=== PATIENT | female | born 1990 | race African-American/Black ===

== ENCOUNTER 2018-05-30 10:00 | Emergency (ER) | payer SELFPAY ==
[~2018-05-30] VITALS: Ht 165.1 cm; Wt 65.8 kg
[2018-05-30] MEDS ORDERED: NKM (10:09)
[2018-05-30 10:28] VITALS: BP 118/74
[2018-05-30] MEDS ORDERED: BENADRYL25 MG ORAL (10:48)
[2018-05-30] MEDS ORDERED: PREDNISONE20 MG ORAL (10:48)
[2018-05-30 11:10] VITALS: BP 118/74
--- NOTE | 2018-05-30 14:41 | Emergency Room Report ---
History of Present Illness General Chief Complaint: Skin Rash/Abscess Source: Patient Present Illness HPI Patient presents with erythema behind the posterior right thigh area started several days ago The area has enlarged She feels area of increased itching Denies any fevers denies any chest pain or shortness of breath denies any abdominal pain Allergies: Coded Allergies: No Known Allergies (Unverified , 05/30/18) Patient History Past Medical History: see triage record Pertinent Family History: none Last Menstrual Period: 05/12/2018 Reviewed Nursing Documentation: PMH: Agreed; PSxH: Agreed Nursing Documentation-PMH Past Medical History: No Stated History Review of Systems All Other Systems: negative except mentioned in HPI Physical Exam Vital Signs Date Time Temp Pulse Resp B/P (MAP) Pulse Ox O2 Delivery O2 Flow Rate FiO2 05/30/18 10:06 98.1 82 14 118/74 97 Room Air 98.1 Sp02 EP Interpretation: reviewed, normal General Appearance: well appearing, no apparent distress Head: normocephalic, atraumatic Eyes: bilateral eye PERRL, bilateral eye EOMI ENT: hearing grossly normal, normal pharynx Neck: supple Respiratory: chest non-tender, lungs clear Cardiovascular #1: regular rate, rhythm Gastrointestinal: non tender Musculoskeletal: normal inspection Neurologic: alert, oriented x3, responsive Skin: other - Area of 3 x 3 cm circular, urticarial lesion posterior right upper thigh no signs of secondary fluctuance, Lymphatic: no adenopathy Medical Decision Making Diagnostic Impression: Primary Impression: insect bite ER Course Patient appears to be having a localized reaction to the affected area No obvious cellulitis patient will have initial conservative outpatient trial And return with any changes Last Vital Signs Date Time Temp Pulse Resp B/P (MAP) Pulse Ox O2 Delivery O2 Flow Rate FiO2 05/30/18 11:10 98.1 14 118/74 97 Room Air 98.1 05/30/18 10:06 82 Status: improved Disposition: HOME, SELF-CARE Condition: Stable Scripts Diphenhydramine Hcl* (BENADRYL*) 25 Mg Capsule 25 MG ORAL Q6H PRN for Itching, #20 CAP Prov: Chris Spencer DO 05/30/18 Prednisone* (PREDNISONE*) 20 Mg Tablet 20 MG ORAL BID, #6 TAB Prov: Chris Spencer DO 05/30/18 Referrals: NOT CHOSEN IPA/MD,REFERRING (PCP) Patient Instructions: Insect Bite, [id number] Additional Instructions: Patient is provided with the discharge instructions notified to follow up with primary doctor in the next 2-3 days otherwise return to the er with any worsening symptoms. Please note that this report is being documented using [employer] technology. This can lead to erroneous entry secondary to incorrect interpretation by the dictating instrument. Chris Spencer DO May 30, 2018 14:41
== END 2018-05-30 11:10 | disposition home or self-care (01) ==
LOC: EMR 10:35
DX: S70.361A Insect bite (nonvenomous), right thigh, initial encounter (principal); W57.XXXA Bitten or stung by nonvenomous insect and other nonvenomous arthropods, initial encounter; Y93.9 Activity, unspecified; Y92.9 Unspecified place or not applicable
CPT/HCPCS: 99283; J7512

== ENCOUNTER 2018-08-12 13:28 | Emergency (ER) | payer OTHER ==
[~2018-08-12] VITALS: Ht 165.1 cm; Wt 52.2 kg
[~2018-08-12 13:28] MED LIST: BENADRYL25 MG ORAL; NKM; PREDNISONE20 MG ORAL
[2018-08-12 13:42] VITALS: BP 116/79
[2018-08-12] MEDS ORDERED: CEPHALEXIN500 MG ORAL (13:58)
[2018-08-12] MEDS ORDERED: HYDROCORTISONE30 G2 TP (13:58)
[2018-08-12] MEDS ORDERED: BENADRYL25 MG ORAL (13:58)
[2018-08-12] MEDS ORDERED: BACITRACIN-P28.35 GM TP (13:58)
--- NOTE | 2018-08-12 13:59 | Emergency Room Report ---
History of Present Illness General Chief Complaint: Skin Rash/Abscess Source: Patient Present Illness HPI 27-year-old female patient presents ER complaining of possible bug bite on lower left lateral leg for the past 2 days. Patient reports has gotten bigger since yesterday. Reports pain, itchiness at site of injury. Reports did not see bug or spider. Denies fever, chest pain, shortness breath, vomiting, seizure. Denies other acute symptoms. Denies pain. Allergies: Coded Allergies: MORPHINE (Verified Allergy, Unknown, 08/12/18) Patient History Past Medical History: see triage record Last Menstrual Period: 07/31/18 Reviewed Nursing Documentation: PMH: Agreed; PSxH: Agreed Nursing Documentation-PMH Past Medical History: No Stated History Review of Systems All Other Systems: negative except mentioned in HPI Physical Exam Vital Signs Date Time Temp Pulse Resp B/P (MAP) Pulse Ox O2 Delivery O2 Flow Rate FiO2 08/12/18 13:42 98.1 70 18 116/79 100 Room Air Sp02 EP Interpretation: reviewed, normal General Appearance: well appearing, no apparent distress, alert, GCS 15, non- toxic Head: normocephalic, atraumatic Eyes: bilateral eye normal inspection, bilateral eye PERRL ENT: hearing grossly normal, normal pharynx, no angioedema, normal voice, uvula midline, moist mucus membranes Neck: full range of motion Respiratory: lungs clear, normal breath sounds, no rhonchi, no respiratory distress, no accessory muscle use, no wheezing, speaking full sentences Cardiovascular #1: regular rate, rhythm, no edema Cardiovascular #2: 2+ dorsalis pedis (R), 2+ dorsalis pedis (L) Musculoskeletal: back normal, digits/nails normal, gait/station normal, normal range of motion, non-tender Neurologic: alert, oriented x3, responsive, motor strength/tone normal, sensory intact Psychiatric: mood/affect normal Skin: other - macule with erythema and overlying urticaria, 3cm circular, no target sign, warmth to touch, tenderness to palpation, no red streaking, no fluctuance, no palpable mass, no crepitus Medical Decision Making PA Attestation Dr. Trevino is my supervising Physician whom patient management has been discussed with. Diagnostic Impression: Primary Impression: Bug bite ER Course Pt. presents to the ED c/o bug bite. Ddx considered but are not limited to atopic dermatitis, bug bite, urticaria, allergic reaction. Vital signs: are WNL, pt. is afebrile ER COURSE: Physical exam consistent with bug bite infection, will provide patient with antibiotics, oral and topical. no induration, no palpable masses, no abscess required I and D. Do not scratch, apply cool compresses to affected area. Take Claritin during the day and Benadryl at night for itching symptoms. Followup wt PCP and request referral to derm. ER precautions given. Follow-up with primary care provider in 2-3 days for wound check. TDAp provided. DISCHARGE: -Rx given for Benadryl for pruritis. SE may cause drowsiness. -Rx given for hydrocortisone cream. Do not apply to face or skin creases. -Rx given for Bacitracin -Rx given for Keflex At this time pt. is stable for d/c to home. Patient resting comfortably, in no acute distress, nontoxic appearing. Care plan and follow up instructions have been discussed with the patient prior to discharge. Patient provided with printed patient care instructions, and any necessary prescriptions. Patient instructed to follow-up with primary care provider in 3 - 5 days. Patient questions asked and answered. Patient reports understanding and agreement to treatment plan. ER precautions given. Patient instructed to return to ER immediately for any new or worsening of symptoms including but not limited to increasing SOB, persistent fever. - Please note that this Emergency Department Report was dictated using [employer] administrator technology software, occasionally this can lead to erroneous entry secondary to interpretation by the dictation equipment. Last Vital Signs Date Time Temp Pulse Resp B/P (MAP) Pulse Ox O2 Delivery O2 Flow Rate FiO2 08/12/18 13:42 98.1 70 18 116/79 100 Room Air Disposition: HOME, SELF-CARE Condition: Stable Scripts Hydrocortisone (Hydrocortisone Cream 2.5%) Y Cream.appl 1 APPLIC TP BID, #28 GM Prov: Rommel Ruffin 08/12/18 Cephalexin* (KEFLEX*) 500 Mg Capsule 500 MG ORAL EVERY 12 HOURS, #14 CAP 0 Refills Prov: Rommel Ruffin 08/12/18 Bacitracin/Polymyxin B Sulfate (BACITRACIN-POLYMYXIN OINTMENT) 28.35 Gm Oint...g. 1 APPLIC TP BID, #28 GM Prov: Rommel Ruffin 08/12/18 Diphenhydramine Hcl* (BENADRYL*) 25 Mg Capsule 25 MG ORAL QHS PRN for Itching, #30 CAP Prov: Rommel Ruffin 08/12/18 Patient Instructions: Cellulitis, [id number], Insect Bite Additional Instructions: Followup with primary care provider in 3 -5 days. Request referral to dermatology as needed. Do not scratch or itch. Apply cool compresses to affected area. Wash all clothes and bedding. Take medications as directed. Do not apply topical steroid medication to face or skin creases. SE Benadryl drowsiness, do not take prior to drinking, driving, operating heavy machinery. Take Claritin during the day and Benadryl at night for itching symptoms. Patient questions asked and answered. ER precautions given, patient instructed to return to ER immediately for any new or worsening of symptoms. [facility] [place] [facility] Rommel Ruffin Aug 12, 2018 13:59
[2018-08-12 14:06] VITALS: BP 116/68
[2018-08-12] MEDS ORDERED: Tetanus/Diptheria/Pertussis Vaccine 0.5ml Syr IM ONE (14:15)
== END 2018-08-12 14:07 | disposition home or self-care (01) ==
LOC: EMR 13:59
DX: S80.862A Insect bite (nonvenomous), left lower leg, initial encounter (principal); W57.XXXA Bitten or stung by nonvenomous insect and other nonvenomous arthropods, initial encounter; Y92.89 Other specified places as the place of occurrence of the external cause; Z23 Encounter for immunization
CPT/HCPCS: 90471; 90715; 99283